=== PATIENT | female | born 1965 | race Caucasian/White ===

== ENCOUNTER → 2020-06-02 | Outpatient (CLI) | payer OTHER ==
[~2020-06-02] MED LIST: ALPR1TAB2 PO; ASPI-515 PO; HYDR2TAB29 PO; LORA10CA PO; VENL150C PO
== END | disposition home or self-care (01) ==
LOC: STAR 15:39
PROVIDERS: ATTEND Anesthesiology
DX: Z01.812 Encounter for preprocedural laboratory examination (principal); Z20.828 Contact with and (suspected) exposure to other viral communicable diseases
CPT/HCPCS: 36415; 87635

== ENCOUNTER 2020-06-04 13:25 | Day surgery (SDC) | payer OTHER ==
[~2020-06-04] VITALS: Ht 157.5 cm; Wt 66.0 kg
[~2020-06-04 13:25] MED LIST changes: -ALPR1TAB2 PO; -ASPI-515 PO; +CEFAZOLIN 1,000 MG ONE; -HYDR2TAB29 PO; -LORA10CA PO; -VENL150C PO
[2020-06-04 14:03] VITALS: BP 129/87
[2020-06-04] MEDS ORDERED: ALPR1TAB2 PO (14:35)
[2020-06-04] MEDS ORDERED: ASPI-515 PO (14:35)
[2020-06-04] MEDS ORDERED: VENL150C PO (14:35)
[2020-06-04] MEDS ORDERED: HYDR2TAB29 PO (14:35)
[2020-06-04] MEDS ORDERED: LORA10CA PO (14:35)
[2020-06-04] MEDS ORDERED: HALOPERIDOL 5 MG/ML IV PRN (15:00)
[2020-06-04] MEDS ORDERED: ONDANSETRON 2MG/ML, 2ML IVPush PRN (15:00)
[2020-06-04] MEDS ORDERED: HYDROcodone/APAP 7.5-325MG/15ML UDC PO PRN (15:00)
[2020-06-04] MEDS ORDERED: LACTATED RINGERS 1,000 ML IV SCH (15:00)
[2020-06-04] MEDS ORDERED: MEPERIDINE/PF 25MG/0.5ML IVPush PRN (15:00)
[2020-06-04] MEDS ORDERED: MIDAZOLAM 1 MG/ML, 2ML IV PRN (15:00)
[2020-06-04] MEDS ORDERED: METHOCARBAMOL 1,000 MG in DEXTROSE 5% 100 ML IV PRN (15:00)
[2020-06-04] MEDS ORDERED: CHLORHEXIDINE 15 ML UDC MM ONE (15:00)
[2020-06-04] MEDS ORDERED: OXYcodone 5 MG/5 ML ORAL.SOL UDC PO PRN (15:00)
[2020-06-04] MEDS ORDERED: ALBUTEROL/IPRATROPIUM 2.5MG/0.5MG, 3 ML NPPB PRN (15:00)
[2020-06-04] MEDS ORDERED: ACETAMINOPHEN 325 MG TABLET PO PRN (15:00)
[2020-06-04] MEDS ORDERED: LABETALOL 5MG/ML, 20ML IV PRN (15:00)
[2020-06-04] MEDS ORDERED: METOCLOPRAMIDE 5 MG/ML, 2ML IVPush PRN (15:00)
[2020-06-04] MEDS ORDERED: DIAZEPAM 5 MG/ML, 2ML IVPush PRN (15:00)
[2020-06-04] MEDS ORDERED: EPHEDRINE 50 MG/ML, 1ML IM PRN (15:00)
[2020-06-04] MEDS ORDERED: DIPHENHYDRAMINE 50 MG/ML, 1ML IVPush PRN (15:00)
[2020-06-04] MEDS ORDERED: EPHEDRINE 50 MG/ML, 1ML IVPush PRN (15:00)
[2020-06-04] MEDS ORDERED: HYDROmorphone 1 MG/ML, 1ML INJ IVPush PRN (15:00)
[2020-06-04] MEDS ORDERED: LORazepam 2 MG/ML, 1ML IVPush PRN (15:00)
[2020-06-04] MEDS ORDERED: KETOROLAC 30 MG/1 ML IVPush PRN (15:00)
[2020-06-04] MEDS ORDERED: hydrALAzine 20 MG/ML, 1ML IV PRN (15:00)
[2020-06-04] MEDS ORDERED: DEXAMETHASONE 4 MG/ML, 1ML ONE (15:01)
[2020-06-04] MEDS ORDERED: ROCURONIUM 10MG/ML,5ML ONE (15:01)
[2020-06-04] MEDS ORDERED: GLYCOPYRROLATE 0.2MG/1ML, 5ML ONE (15:01)
[2020-06-04] MEDS ORDERED: PROPOFOL 10 MG/ML, 20ML ONE (15:01)
[2020-06-04] MEDS ORDERED: LIDOCAINE-MPF 2% ,5ML ONE (15:01)
[2020-06-04] MEDS ORDERED: MIDAZOLAM 1 MG/ML, 5ML ONE (15:02)
[2020-06-04] MEDS ORDERED: FENTANYL PF 250 MCG/5ML ONE (15:02)
[2020-06-04] MEDS ORDERED: BUPIVACAINE/PF 0.5% ONE (15:08)
[2020-06-04] MEDS ORDERED: EPINEPHRINE 1 MG/ML, 1ML ONE (15:08)
[2020-06-04] MEDS ORDERED: ONDANSETRON 2MG/ML, 2ML ONE (16:01)
[2020-06-04] MEDS ORDERED: OXYcodone 5 MG/5 ML ORAL.SOL UDC ONE (16:28)
[2020-06-04] MEDS ORDERED: FENTANYL PF 100 MCG/2ML ONE (16:28)
[2020-06-04] MEDS: FENTANYL PF 100 MCG/2ML IV PRN ×2 (16:30→16:40)
== END 2020-06-04 18:30 | disposition home or self-care (01) ==
LOC: OUT 13:25
PROVIDERS: ATTEND Orthopaedic Surgery
DX: S52.571A Other intraarticular fracture of lower end of right radius, initial encounter for closed fracture (principal); M19.90 Unspecified osteoarthritis, unspecified site; F41.9 Anxiety disorder, unspecified; I25.2 Old myocardial infarction; I25.10 Atherosclerotic heart disease of native coronary artery without angina pectoris; F17.210 Nicotine dependence, cigarettes, uncomplicated; F12.90 Cannabis use, unspecified, uncomplicated; Z88.0 Allergy status to penicillin; X58.XXXA Exposure to other specified factors, initial encounter; Y93.89 Activity, other specified; Y92.89 Other specified places as the place of occurrence of the external cause; Y99.8 Other external cause status; Z72.89 Other problems related to lifestyle; Z95.0 Presence of cardiac pacemaker; Z79.899 Other long term (current) drug therapy; Z79.82 Long term (current) use of aspirin; Z98.890 Other specified postprocedural states
CPT/HCPCS: 25609; 73100; 76000; 87635; 93005; C1713; C1776; J0171; J0690; J1100; J1885; J2250; J2405; J2704; J3010; J7120

== ENCOUNTER 2020-07-16 16:05 | Day surgery (SDC) | payer OTHER ==
[~2020-07-16] VITALS: Ht 157.5 cm; Wt 66.0 kg
[~2020-07-16 16:05] MED LIST changes: +ALPR1TAB2 PO; +ASPI-515 PO; -CEFAZOLIN 1,000 MG ONE; +HYDR2TAB29 PO; +LORA10CA PO; +VENL150C PO
[2020-07-16] MEDS ORDERED: FENTANYL PF 100 MCG/2ML ONE ×2 (16:34→18:37)
[2020-07-16] MEDS ORDERED: MIDAZOLAM 1 MG/ML, 2ML ONE (16:34)
[2020-07-16 16:39] VITALS: BP 154/104
[2020-07-16] MEDS ORDERED: CENTRUM PO (16:46)
[2020-07-16] MEDS ORDERED: CHLORHEXIDINE 15 ML UDC MM ONE (17:00)
[2020-07-16] MEDS ORDERED: LACTATED RINGERS 1,000 ML IV SCH (17:00)
[2020-07-16] MEDS ORDERED: PROPOFOL 10 MG/ML, 20ML ONE (17:45)
[2020-07-16] MEDS ORDERED: DEXAMETHASONE 4 MG/ML, 1ML ONE (17:45)
[2020-07-16] MEDS ORDERED: CEFAZOLIN 1,000 MG ONE (17:45)
[2020-07-16] MEDS ORDERED: ONDANSETRON 2MG/ML, 2ML ONE (17:45)
[2020-07-16] MEDS ORDERED: LIDOCAINE-MPF 1%, 5ML ONE (17:45)
[2020-07-16] MEDS ORDERED: BUPIVACAINE/PF 0.25% INFIL ONE (18:04)
[2020-07-16] MEDS ORDERED: EPINEPHRINE 1 MG/ML, 1ML INFIL ONE (18:05)
[2020-07-16] MEDS ORDERED: OXYcodone 5 MG/5 ML ORAL.SOL UDC ONE ×2 (18:37→19:08)
[2020-07-16] MEDS: OXYcodone 5 MG/5 ML ORAL.SOL UDC PO PRN ×2 (18:42→19:10)
[2020-07-16] MEDS: FENTANYL PF 100 MCG/2ML IV PRN ×4 (18:42→19:00)
[2020-07-16] MEDS ORDERED: ONDANSETRON 2MG/ML, 2ML IVPush PRN (19:00)
[2020-07-16] MEDS ORDERED: PROMETHAZINE 25 MG/ML, 1ML IVPush PRN (19:00)
[2020-07-16] MEDS ORDERED: HYDROmorphone 1 MG/ML, 1ML INJ ONE (19:08)
[2020-07-16] MEDS: HYDROmorphone 1 MG/ML, 1ML INJ IVPush PRN ×3 (19:11→19:29)
== END 2020-07-16 20:10 | disposition home or self-care (01) ==
LOC: SDC 16:05 → EDSTATUS 17:30 → SDC 20:10
PROVIDERS: ATTEND Orthopaedic Surgery
DX: T84.122A Displacement of internal fixation device of bone of right forearm, initial encounter (principal); M19.90 Unspecified osteoarthritis, unspecified site; Z20.828 Contact with and (suspected) exposure to other viral communicable diseases; Z79.899 Other long term (current) drug therapy; Z87.891 Personal history of nicotine dependence; Z88.0 Allergy status to penicillin; Z82.61 Family history of arthritis; Z82.49 Family history of ischemic heart disease and other diseases of the circulatory system; Y83.8 Other surgical procedures as the cause of abnormal reaction of the patient, or of later complication, without mention of misadventure at the time of the procedure
CPT/HCPCS: 20680; 73100; 87635; J0171; J0690; J1100; J1170; J2250; J2405; J2704; J3010; J7120; 76000